=== PATIENT | female | born 1940 | race Caucasian/White ===

== ENCOUNTER 2022-09-14 18:01 | Observation (INO) | payer MEDICARE, OTHER ==
[~2022-09-14] VITALS: Ht 152.4 cm; Wt 54.5 kg
[2022-09-14] MEDS ORDERED: HYDROMORPHONE HCL 0.5 MG/ 0.5 ML SYRINGE IV ONE (19:25)
[2022-09-14 19:59] LABS: BASO # 0.1 10^3/uL (0.0-0.2); BASO % 0.4 % (0.0-1.0); EOS # 0.1 10^3/uL (0.0-0.5); EOS % 0.5 % (0.0-3.0); HEMATOCRIT 37.1 % (36.0-47.0); HEMOGLOBIN 12.4 g/dl (12.0-15.5); LYMPH % 15.5 % (24.0-44.0); MEAN CORPUSCULAR HEMOGLOBIN 31.3 pg (27.0-33.0); MEAN CORPUSCULAR HGB CONC 33.4 g/dl (32.0-36.5); MEAN CORPUSCULAR VOLUME 93.7 fl (80.0-96.0); MONO % 7.7 % (2.0-8.0); NEUTROPHILS # 9.6 10^3/uL (1.5-8.5); NEUTROPHILS % 75.6 % (36.0-66.0); PLATELET COUNT, AUTOMATED 313 10^3/uL (150-450); RED BLOOD COUNT 3.96 10^6/uL (4.00-5.40); WHITE BLOOD COUNT 12.6 10^3/uL (4.0-10.0)
[2022-09-14 20:03] LABS: BLOOD UREA NITROGEN 18 MG/DL (9-23); CALCIUM LEVEL 9.5 MG/DL (8.3-10.6); CARBON DIOXIDE LEVEL 28 MMOL/L (20-31); CHLORIDE LEVEL 105 MMOL/L (98-107); CREATININE FOR GFR 0.74 MG/DL (0.55-1.30); GLOMERULAR FILTRATION RATE > 60.0 (>32); GLUCOSE, FASTING 108 MG/DL (74-106); POTASSIUM SERUM 3.9 MMOL/L (3.5-5.1); SODIUM LEVEL 138 MMOL/L (136-145)
[2022-09-14 20:20] LABS: RSV AMPLIFICATION NEGATIVE (NEGATIVE)
[2022-09-14] MEDS ORDERED: DULO1CAP5 PO (22:44)
[2022-09-14] MEDS ORDERED: CALC1TAB30 PO ×2 (22:44)
[2022-09-14] MEDS ORDERED: LEVO50TA5 PO (22:44)
[2022-09-14] MEDS ORDERED: OMEG10002 PO (22:44)
[2022-09-14] MEDS ORDERED: EZET10TA21 PO (22:44)
[2022-09-14] MEDS ORDERED: VITA-148 PO (22:44)
[2022-09-14] MEDS ORDERED: TREL1AER PO (22:44)
[2022-09-14] MEDS ORDERED: MIRA1POW3 PO (22:44)
[2022-09-14] MEDS ORDERED: RA B1TAB2 PO (22:44)
[2022-09-14] MEDS ORDERED: VITA500C24 PO (22:44)
[2022-09-14] MEDS ORDERED: LISI5TAB11 PO (22:44)
[2022-09-14] MEDS ORDERED: METO1TAB32 PO (22:44)
[2022-09-14] MEDS ORDERED: HOME MED LIST COMPLETE! XX SCH (22:50)
[2022-09-15] MEDS ORDERED: ACETAMINOPHEN TAB 650MG DOSE (2X325MG) PO PRN (00:10)
[2022-09-15 01:00] VITALS: BP 147/77; TEMP 96.8; O2SAT 95
[2022-09-15] MEDS: HYDROMORPHONE HCL 0.5 MG/ 0.5 ML SYRINGE IV PRN ×4 (01:19→15:13)
[2022-09-15 05:22] VITALS: BP 121/66; TEMP 97; O2SAT 84
[2022-09-15] MEDS: LEVOTHYROXINE 50MCG TABLET (0.05MG) PO SCH (05:32)
[2022-09-15] MEDS ORDERED: MIRALAX *UNIT DOSE* 17GM PACKET PO PRN (07:55)
[2022-09-15 08:00] VITALS: BP 110/63; TEMP 97.4; O2SAT 94
[2022-09-15] MEDS: SENOKOT S TAB PO SCH ×2 (09:32→20:55)
[2022-09-15] MEDS: METOPROLOL SUCC *XL* 25MG TAB (TopROL *XL*) PO SCH (09:32)
[2022-09-15] MEDS: DULoxetine 30MG CAPSULE (CYMBALTA) PO SCH (09:32)
[2022-09-15] MEDS: lisinopriL 5 MG TAB PO SCH (09:33)
[2022-09-15] MEDS: ACETAMINOPHEN TAB 650MG DOSE (2X325MG) PO SCH ×3 (09:33→20:55)
[2022-09-15] MEDS: EZETIMIBE 10MG TABLET (ZETIA) PO SCH (09:34)
[2022-09-15] MEDS: oxyCODONE 5MG TAB PO PRN ×2 (11:42→17:33)
[2022-09-15] MEDS: IBUPROFEN 600MG TAB PO PRN (16:22)
[2022-09-15] MEDS ORDERED: HYDROMORPHONE HCL 0.5 MG/ 0.5 ML SYRINGE IV PRN (18:10)
[2022-09-15 19:55] VITALS: BP 106/53; TEMP 96.6; O2SAT 94
[2022-09-16] VITALS (8 sets, daily range): BP systolic 104–140; BP diastolic 50–73; TEMP 96.3–97.9; O2SAT 90–99
[2022-09-16] MEDS: oxyCODONE 5MG TAB PO PRN ×5 (04:10→21:11)
[2022-09-16] MEDS: IBUPROFEN 600MG TAB PO PRN ×2 (06:01→18:54)
[2022-09-16] MEDS: LEVOTHYROXINE 50MCG TABLET (0.05MG) PO SCH (06:02)
[2022-09-16 06:25] LABS: ALKALINE PHOSPHATASE 59 U/L (46-116); ALT/SGPT 28 U/L (7.0-40); AST/SGOT 18 U/L (<34); BILIRUBIN,TOTAL 1.2 MG/DL (0.3-1.2); BLOOD UREA NITROGEN 16 MG/DL (9-23); CALCIUM LEVEL 9.7 MG/DL (8.3-10.6); CARBON DIOXIDE LEVEL 29 MMOL/L (20-31); CHLORIDE LEVEL 108 MMOL/L (98-107); CREATININE FOR GFR 0.63 MG/DL (0.55-1.30); GLOMERULAR FILTRATION RATE > 60.0 (>32); GLUCOSE, FASTING 99 MG/DL (74-106); POTASSIUM SERUM 4.1 MMOL/L (3.5-5.1); SODIUM LEVEL 140 MMOL/L (136-145); TOTAL PROTEIN 5.7 G/DL (5.7-8.2)
[2022-09-16] MEDS: EZETIMIBE 10MG TABLET (ZETIA) PO SCH (09:41)
[2022-09-16] MEDS: DULoxetine 30MG CAPSULE (CYMBALTA) PO SCH (09:41)
[2022-09-16] MEDS: lisinopriL 5 MG TAB PO SCH (09:43)
[2022-09-16] MEDS: ACETAMINOPHEN TAB 650MG DOSE (2X325MG) PO SCH ×3 (09:44→20:13)
[2022-09-16] MEDS: METOPROLOL SUCC *XL* 25MG TAB (TopROL *XL*) PO SCH (09:44)
[2022-09-16] MEDS: SENOKOT S TAB PO SCH ×2 (09:44→20:08)
[2022-09-16] MEDS: TRELEGY ELLIPTA INH SCH (11:00)
[2022-09-16] MEDS ORDERED: ALBUTEROL 90 MCG/ACT 8GM HFA INHALER INH PRN (11:30)
[2022-09-16] MEDS ORDERED: LIDOCAINE 2% 100MG/5ML SDV (FOR ANES.) As Ordered ONE (12:42)
[2022-09-16] MEDS ORDERED: propofoL 200 MG/20 ML VIAL As Ordered ONE (12:42)
[2022-09-16] MEDS ORDERED: fentaNYL 100 MCG/2 ML INJECTION As Ordered ONE ×2 (12:42→16:32)
[2022-09-16] MEDS ORDERED: MIDAZOLAM INJ 2MG/2ML VIAL As Ordered ONE (12:42)
[2022-09-16] MEDS ORDERED: ROCURONIUM BROMIDE 50MG/5ML VIAL As Ordered ONE (12:45)
[2022-09-16] MEDS ORDERED: ceFAZolin 2 GM/D5W 50 ML IV BAG As Ordered ONE (13:30)
[2022-09-16] MEDS ORDERED: PHENYLephrine 500MCG 5ML (100MCG/ML) SYRINGE As Ordered ONE (14:05)
[2022-09-16] MEDS ORDERED: ONDANSETRON 4MG 2ML VIAL As Ordered ONE (14:32)
[2022-09-16] MEDS ORDERED: ACETAMINOPHEN 1000MG 100ML IV BAG As Ordered ONE (14:32)
[2022-09-16] MEDS: fentaNYL 100 MCG/2 ML INJECTION IV PRN ×4 (16:32→16:50)
[2022-09-16] MEDS ORDERED: ONDANSETRON 4MG 2ML VIAL IV PRN ×2 (16:35→17:55)
[2022-09-16] MEDS ORDERED: LR 1,000 ML IV SCH (16:35)
[2022-09-16] MEDS ORDERED: PROMETHAZINE 25MG/ML 1ML VIAL IV PRN (16:35)
[2022-09-16] MEDS ORDERED: hydrALAZINE 20MG/ML 1ML VIAL IV PRN (16:35)
[2022-09-16] MEDS ORDERED: HYDROMORPHONE HCL 0.5 MG/ 0.5 ML SYRINGE IV PRN (16:35)
[2022-09-16] MEDS: ceFAZolin SOD 2 GM in IV 1 EA IV SCH (21:11)
[2022-09-17 02:00] VITALS: BP 100/56; TEMP 97.9; O2SAT 97
[2022-09-17] MEDS: ceFAZolin SOD 2 GM in IV 1 EA IV SCH (05:21)
[2022-09-17] MEDS: LEVOTHYROXINE 50MCG TABLET (0.05MG) PO SCH (05:21)
[2022-09-17] MEDS: oxyCODONE 5MG TAB PO PRN ×3 (05:22→23:10)
[2022-09-17 06:00] VITALS: BP 123/64; TEMP 98.6; O2SAT 97
[2022-09-17] MEDS: DULoxetine 30MG CAPSULE (CYMBALTA) PO SCH (08:43)
[2022-09-17] MEDS: EZETIMIBE 10MG TABLET (ZETIA) PO SCH (08:43)
[2022-09-17] MEDS: SENOKOT S TAB PO SCH ×2 (08:43→20:19)
[2022-09-17] MEDS: lisinopriL 5 MG TAB PO SCH (08:43)
[2022-09-17] MEDS: METOPROLOL SUCC *XL* 25MG TAB (TopROL *XL*) PO SCH (08:44)
[2022-09-17] MEDS: ACETAMINOPHEN TAB 650MG DOSE (2X325MG) PO SCH ×3 (10:02→20:19)
[2022-09-17] MEDS: IBUPROFEN 600MG TAB PO PRN (10:03)
[2022-09-17] MEDS: TRELEGY ELLIPTA INH SCH (11:05)
[2022-09-17 14:00] VITALS: BP 151/80; TEMP 97.2; O2SAT 90
[2022-09-17 20:00] VITALS: BP 149/73; TEMP 97; O2SAT 93
[2022-09-18 05:54] VITALS: BP 131/66; TEMP 96.6; O2SAT 97
[2022-09-18] MEDS: LEVOTHYROXINE 50MCG TABLET (0.05MG) PO SCH (06:07)
[2022-09-18] MEDS: TRELEGY ELLIPTA INH SCH (08:00)
[2022-09-18 08:07] LABS: BASO % 0.5 % (0.0-1.0); EOS # 0.1 10^3/uL (0.0-0.5); EOS % 1.4 % (0.0-3.0); HEMATOCRIT 32.3 % (36.0-47.0); HEMOGLOBIN 10.5 g/dl (12.0-15.5); LYMPH # 2.4 10^3/uL (1.5-5.0); LYMPH % 27.7 % (24.0-44.0); MEAN CORPUSCULAR HEMOGLOBIN 31.7 pg (27.0-33.0); MEAN CORPUSCULAR HGB CONC 32.5 g/dl (32.0-36.5); MEAN CORPUSCULAR VOLUME 97.6 fl (80.0-96.0); MONO # 1.1 10^3/uL (0.0-0.8); MONO % 12.8 % (2.0-8.0); NEUTROPHILS % 57.1 % (36.0-66.0); PLATELET COUNT, AUTOMATED 248 10^3/uL (150-450); RED BLOOD COUNT 3.31 10^6/uL (4.00-5.40); WHITE BLOOD COUNT 8.8 10^3/uL (4.0-10.0)
[2022-09-18] MEDS: DULoxetine 30MG CAPSULE (CYMBALTA) PO SCH (08:11)
[2022-09-18] MEDS: METOPROLOL SUCC *XL* 25MG TAB (TopROL *XL*) PO SCH (08:11)
[2022-09-18] MEDS: SENOKOT S TAB PO SCH (08:15)
[2022-09-18] MEDS: ACETAMINOPHEN TAB 650MG DOSE (2X325MG) PO SCH (08:15)
[2022-09-18] MEDS: EZETIMIBE 10MG TABLET (ZETIA) PO SCH (08:15)
[2022-09-18 08:33] LABS: BLOOD UREA NITROGEN 14 MG/DL (9-23); CALCIUM LEVEL 9.1 MG/DL (8.3-10.6); CARBON DIOXIDE LEVEL 28 MMOL/L (20-31); CHLORIDE LEVEL 107 MMOL/L (98-107); CREATININE FOR GFR 0.51 MG/DL (0.55-1.30); GLOMERULAR FILTRATION RATE > 60.0 (>32); GLUCOSE, FASTING 99 MG/DL (74-106); MAGNESIUM LEVEL 1.6 MG/DL (1.8-2.4); SODIUM LEVEL 141 MMOL/L (136-145)
[2022-09-18 09:00] VITALS: BP 133/72
[2022-09-18] MEDS: lisinopriL 5 MG TAB PO SCH (09:00)
[2022-09-18] MEDS ORDERED: ACET1TAB55 PO (11:28)
[2022-09-18] MEDS ORDERED: OXYC-517 PO (11:28)
== END 2022-09-18 15:30 | disposition home health service (06) ==
LOC: M ED 18:01 → EDBD 18:01 → M ED INP 18:02 → M MS5PR 09-15 00:48
PROVIDERS: ADMIT Internal Medicine; ATTEND Student in an Organized Health Care Education/Training Program
DX: S52.591A Other fractures of lower end of right radius, initial encounter for closed fracture (principal); S52.592A Other fractures of lower end of left radius, initial encounter for closed fracture; M25.531 Pain in right wrist; M25.532 Pain in left wrist; W10.8XXA Fall (on) (from) other stairs and steps, initial encounter; Y92.89 Other specified places as the place of occurrence of the external cause; S83.207A Unspecified tear of unspecified meniscus, current injury, left knee, initial encounter; R26.81 Unsteadiness on feet; J44.9 Chronic obstructive pulmonary disease, unspecified; I10 Essential (primary) hypertension; E78.5 Hyperlipidemia, unspecified; E03.9 Hypothyroidism, unspecified; J45.909 Unspecified asthma, uncomplicated; Z85.3 Personal history of malignant neoplasm of breast; Z92.21 Personal history of antineoplastic chemotherapy; Z92.3 Personal history of irradiation; K21.9 Gastro-esophageal reflux disease without esophagitis; F32.A Depression, unspecified; F41.9 Anxiety disorder, unspecified; I25.10 Atherosclerotic heart disease of native coronary artery without angina pectoris; I25.2 Old myocardial infarction; M81.0 Age-related osteoporosis without current pathological fracture; Z79.899 Other long term (current) drug therapy; Z79.890 Hormone replacement therapy
CPT/HCPCS: 25607; 36415; 71045; 73090; 73110; 76000; 80048; 80053; 83735; 85025; 87631; 96365; 96375; 96376; 97116; 97161; 97165; 97530; 99285; C1713; G0378; J0131; J0360; J0690; J1100; J1170; J2250; J2371; J2405; J3010

== ENCOUNTER → 2022-09-26 | Outpatient (CLI) | payer OTHER ==
[~2022-09-26] MED LIST: ACET1TAB55 PO; CALC1TAB30 PO; DULO1CAP5 PO; EZET10TA21 PO; LEVO50TA5 PO; LISI5TAB11 PO; METO1TAB32 PO; MIRA1POW3 PO; OMEG10002 PO; OXYC-517 PO; RA B1TAB2 PO; TREL1AER PO; VITA-148 PO; VITA500C24 PO
== END ==
LOC: M SOG 09:48
PROVIDERS: ATTEND Physician Assistant
DX: S52.551A Other extraarticular fracture of lower end of right radius, initial encounter for closed fracture (principal); S52.552A Other extraarticular fracture of lower end of left radius, initial encounter for closed fracture